=== PATIENT | female | born 1995 | race Hispanic/Latino ===

== ENCOUNTER 2016-05-22 13:30 | Inpatient (IN) | payer OTHER ==
[~2016-05-22] VITALS: Ht 162.6 cm; Wt 65.0 kg
[2016-05-22] VITALS (15 sets, daily range): BP systolic 98–125; BP diastolic 56–77
[2016-05-22] MEDS ORDERED: PRENTAB9 PO (13:45)
[2016-05-22] MEDS ORDERED: LACTATED RINGER'S 1000 ML IV STA (15:06)
--- NOTE | 2016-05-22 15:40 | HPEPDOC ---
Obstetrical History & Physical General Date of Admission May 22, 2016 History of Present Illness Hiram is a 21yo with SIUP at 38w3d presenting with contractions x 1 day. She states she had a bit of blood in some mucous discharge earlier in the day, no loss of fluid, feels baby moving well. Also had some nausea this morning and hasn't eaten today because of it. 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 BREAST: . ABDOMEN: Gravid and non-tender to touch. FETUS: Is vertex (VTX) by sterile vaginal examination (SVE), 3000g by Khanh's HEART RATE: Regular rate and rhythm. LUNGS: Clear to auscultation (CTA). EXTREMITIES: No edema Pertinent Laboratoy Data RBC Antibody Screen: Negative HIV: Negative Hepatitis B: Negative Hepatitis C: Unknown Rapid Plasma Reagin: Nonreactive Rubella: Immune Varicella: Immune Chlamydia/Gonorrhea: Negative Group B Streptococcus: Negative Cystic Fibrosis: Negative Anatomy Ultrasound Ultrasound Date: Jan 23, 2016 Placenta Location: Posterior Normal Anatomy: Yes Placenta Previa: No Steroid Therapy Steroid Therapy: No Vaginal Examination Dilation: 5 cm Effacement: 80+% Station: -2 Cervical Consistency: Soft Cervical Position: Anterior Presentation: Cephalic presentation Assessment Heart Rate (FHR): 140 Variability: Moderate Accelerations: Positive Decelerations: None Tocometer Contractions: Yes Frequency: regular, every 2-4 min. Duration: greater than 60 seconds Strength: palpated as moderate Assessment/Plan Assessment Hiram is a 21yo with SIUP at 38w3d presenting in active labor with regular ctx q2-4min and SCE 5/80/-2. No ROM. FHRT Cat I GBS negative EFW 3000g by Khanh's Completely uncomplicated course and PMHx. is currently flying back from [place] Plan Admit and orient. Counseled and consented for Diet: clear liquids Group B Streptococcus (GBS) negative Labs and intravenous (IV) per unit protocol. Lactated Ringers (LR): Bolus 1000 mL, then at 125 mL/hr. Anticipate normal spontaneous delivery () Unsure if desires epidural at this time Dr. Rg Contreras MD [place] MD May 22, 2016 15:39
--- NOTE | 2016-05-22 15:53 | IPNPDOC ---
Text Note Date of Service The patient was seen on 05/22/16 at 15:51. NOTE Intrapartum Note Cat I tracing, ctx q2-4min, patient not yet very uncomfortable with SCE /. AROM performed with clear fluid, well tolerated. Patient still undecided on whether she desires epidural in labor later. Will recheck in 2hr or earlier as indicated. Dr. Rg Contreras MD [place] MD May 22, 2016 15:53
[2016-05-22] MEDS: LR 1,000 ML IV SCH ×2 (16:05→23:06)
[2016-05-22 16:42] LABS: WHITE BLOOD COUNT 16.1 K/mm3 (4.0-10.0)
[2016-05-22 16:43] LABS: MEAN CORPUSCULAR HGB CONC 35.7 g/dl (32.0-36.5); MEAN CORPUSCULAR VOLUME 89.6 fl (80.0-96.0); RED CELL DISTRIBUTION WIDTH 12.9 % (11.5-14.5)
[2016-05-22] MEDS ORDERED: FENTANYL 2MCG/ML ROPIVACAINE 0.2% NACL 250 ML CADD As Ordered ONE (16:43)
[2016-05-22] MEDS ORDERED: ONDANSETRON 4MG/2ML VIAL (J2405) IV PRN (17:30)
[2016-05-22] MEDS ORDERED: FENTANYL/ROPIVACAINE/NACL CADD 250 ML EPIDURAL SCH (17:30)
[2016-05-22] MEDS ORDERED: diphenhydrAMINE INJ 50MG/ML VIAL (J1200) IV PRN (17:30)
[2016-05-22] MEDS ORDERED: NALOXONE INJ 0.4 MG/1 ML VIAL (J2310) IV PRN (17:30)
[2016-05-22] MEDS ORDERED: LACTATED RINGER'S 1000 ML IV PRN (17:30)
[2016-05-22] MEDS ORDERED: REFRIGERATOR IV KEYS XX PRN (17:30)
[2016-05-22] MEDS ORDERED: EPIDURAL COMMENT XX SCH (17:30)
[2016-05-22] MEDS ORDERED: EPIDURAL/PCA KEYS XX PRN (17:30)
--- NOTE | 2016-05-22 20:01 | IPNPDOC ---
Text Note Date of Service The patient was seen on 05/22/16 at 19:59. NOTE Intrapartum Note Patient very comfortable with epidural. FHRT Cat I SCE C/C/-1. Test pushes with two contractions, no appreciable descent. Will allow 1 hour for passive descent and then begin pushing until delivery. Dr. Rg Contreras MD [place], OBGYJaclyn VS,Alana, I+O VS, Alana, I+O Laboratory Tests 05/22/16 15:24 Red Blood Count 4.33, Mean Corpuscular Volume 89.6, Mean Corpuscular Hemoglobin 32.0, Mean Corpuscular Hemoglobin Concent 35.7, Red Cell Distribution Width 12.9 Vital Signs Date Time Temp Pulse Resp B/P Pulse Ox O2 Delivery O2 Flow Rate FiO2 05/22/16 13:53 98.7 108 16 125/77 RG CONTRERAS MD May 22, 2016 20:01
[2016-05-22] MEDS ORDERED: OXYTOCIN 30 UNITS IN 0.9% NaCl 500ML IV BAG (J2590) As Ordered ONE (21:40)
[2016-05-22] MEDS ORDERED: OXYTOCIN DRIP 30 UNITS in APPROPRIATE DILUENT 1 EA IV SCH (22:30)
[2016-05-23] MEDS ORDERED: OXYTOCIN DRIP 30 UNITS in APPROPRIATE DILUENT 1 EA IV SCH (00:14)
[2016-05-23] MEDS ORDERED: IBUPROFEN 800 MG TAB PO PRN (00:15)
[2016-05-23] MEDS ORDERED: DIBUCAINE 1% OINTMENT 30GM TOP PRN (00:15)
[2016-05-23] MEDS ORDERED: DOCUSATE SODIUM 100 MG CAP PO PRN (00:15)
[2016-05-23] MEDS ORDERED: ACETAMINOPHEN 500 MG TAB PO PRN (00:15)
[2016-05-23] MEDS ORDERED: RHOGAM 300 MCG (1500 IU) INJ (J2790) IM SCH (00:15)
[2016-05-23] MEDS ORDERED: MEASLES,MUMPS,RUBELLA VACCINE INJ (MMR-II) (90707) SC SCH (00:15)
--- NOTE | 2016-05-23 00:24 | DNPDOC ---
Delivery Note Delivery Note DATE OF DELIVERY: May 22, 2016 at 23:41 PREDELIVERY DIAGNOSIS: 38&3 weeks' gestation and labor. POST DELIVERY DIAGNOSIS: Delivered. PROCEDURE: Spontaneous vaginal delivery EVENT DESIGNER: Dr. Rg Contreras MD ANESTHESIA: epidural ESTIMATED BLOOD LOSS: 200 mL. FINDINGS: 7 pound 2 ounce male , Score 9/10, no nuchal cord, left compound hand DELIVERY SUMMARY: Hiram is a 21yo G1 now P1001 who was admitted to L&D for active labor. She had an uncomplicated of a viable male at 2341 on [id number] at 38w3d. Head delivered OA, restituted RADHA. No nuchal cord present, but there was a compound left hand. Right anterior shoulder delivered followed by posterior shoulder and corpus. Cord clamped x2 and cut by friend of patient. Infant mouth/ nares bulb suctioned. Spontaneous cry noted. Baby placed on mother's abdomen. Apgars 9/10, weight 3240g. No indication to obtain cord blood. With gentle downward guidance and suprapubic pressure, placenta delivered spontaneously and intact with a 3-vessel centrally inserted cord. Fundal massage until both uterine fundus and lower uterine segment firm; fundus at U-1. Pitocin 30 units IV bolus administered. Inspection of perineum and vaginal wall revealed left labial and intravaginal 1mll closed with 3.0/4.0 vicryl suture with good hemostasis. Mom and in stable condition. RG CONTRERAS MD May 23, 2016 00:24
[2016-05-23 02:31] VITALS: BP 114/67
[2016-05-23 05:08] VITALS: BP 109/58
[2016-05-23] MEDS: LR 1,000 ML IV SCH (07:06)
[2016-05-23] MEDS: PRENATAL VITAMIN TAB PO SCH (09:00)
--- NOTE | 2016-05-23 11:07 | IPNPDOC ---
Text Note Date of Service The patient was seen on 05/23/16 at 11:05. NOTE Hiram is a 21yo [id number] doing well on PPD 1 s/p uncomplicated on 05/22 at 2341 at 38w3d gestation after presenting for active labor. Pain well controlled. Lochia is minimal, with no difficulty. Tolerating regular diet, ambulating without difficulty, voiding spontaneously. Denies f/c/n /v/CP/SOB. Vitals wnl, afebrile General: WDWN, resting comfortably Cardiac: S1S2 present, no murmur Lungs: CTAB Abdomen: soft, NTND, fundus firm at u-2cm Extremities: no pain with palpation of calves Assessment: Hiram is a 21yo [id number] doing well on PPD 1 s/p uncomplicated on 05/22 at 2341 at 38w3d gestation after presenting for active labor. Hemodynamically stable with no e/o infection. Plan: -routine post- care -encourage and ambulation -regular diet -tylenol and motrin for pain -desires Minipill for PP contraception -likely d/c to home tomorrow Dr. Rg Contreras MD [place] BJ VS,Alana, I+O VSAlana I+O Laboratory Tests 05/22/16 15:24 Red Blood Count 4.33, Mean Corpuscular Volume 89.6, Mean Corpuscular Hemoglobin 32.0, Mean Corpuscular Hemoglobin Concent 35.7, Red Cell Distribution Width 12.9 Vital Signs Date Time Temp Pulse Resp B/P Pulse Ox O2 Delivery O2 Flow Rate FiO2 05/23/16 05:08 97.6 72 16 109/58 I&O- Last 24 Hours up to 6 AM 05/23/16 06:00 Output Total 450 ml Balance -450 ml RG CONTRERAS MD May 23, 2016 11:07
[2016-05-23 18:24] VITALS: BP 117/69
[2016-05-24 05:38] VITALS: BP 112/65
[2016-05-24] MEDS: PRENATAL VITAMIN TAB PO SCH (07:51)
[2016-05-24] MEDS ORDERED: IBUP-1114 PO (08:25)
[2016-05-24] MEDS ORDERED: ACET50TA PO (08:25)
[2016-05-24] MEDS ORDERED: COLA100C PO (08:27)
== END 2016-05-24 09:45 | disposition home or self-care (01) | DRG 766 ==
LOC: M LDO 13:30 → M LDI 15:34 → M OBS 05-23 01:51
PROVIDERS: ADMIT Obstetrics & Gynecology; ATTEND Obstetrics & Gynecology
PROC: 10D00Z1 Extraction of Products of Conception, Low, Open Approach (ICD-10-PCS; principal; 2016-05-22)
PROC: 0HQ9XZZ Repair Perineum Skin, External Approach (ICD-10-PCS; 2016-05-22)
DX: O70.0 First degree perineal laceration during delivery (principal); Z37.0 Single live birth; Z3A.38 38 weeks gestation of pregnancy